=== PATIENT | male | born 1990 | race Caucasian/White ===

== ENCOUNTER 2023-06-16 13:10 | Emergency (ER) | payer OTHER ==
[~2023-06-16] VITALS: Ht 167.6 cm; Wt 68.0 kg
[2023-06-16 13:44] VITALS: BP 129/92; PULSE 88; RESP 16; TEMP 98.7
[2023-06-16] MEDS ORDERED: IBUPROFEN 800 MG TABLET PO ONE (15:00)
== END 2023-06-16 17:03 ==
LOC: EMS 13:11
DX: S92.401A Displaced unspecified fracture of right great toe, initial encounter for closed fracture (principal); F17.210 Nicotine dependence, cigarettes, uncomplicated; Z98.890 Other specified postprocedural states; X50.1XXA Overexertion from prolonged static or awkward postures, initial encounter; Y93.89 Activity, other specified; Y92.89 Other specified places as the place of occurrence of the external cause; Y99.8 Other external cause status
CPT/HCPCS: 99284; 73610-TC; 73630-TC; Z7502; Z7610